=== PATIENT | female | born 1990 | race Caucasian/White ===

== ENCOUNTER 2016-11-16 10:43 | Emergency (ER) | payer OTHER ==
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
--- NOTE | 2016-11-16 11:08 | CPEKG ---
Heart Rate: 61 RR Interval: 984 P-R Interval: 152 QRSD Interval: 98 QT Interval: 464 QTC Interval: 468 P Erie: 59 QRS Erie: 53 T Wave Erie: 58 EKG Severity - NORMAL ECG - EKG Impression: SINUS RHYTHM Electronically Signed By: Home Hardwick 16-Nov-2016 21:23:17
[2016-11-16 11:29] LABS: % IMMATURE GRANULYOCYTES 0.6 % (0.0-1.1); ABSOLUTE IMMATURE GRANULOCYTES 0.03 10^3/uL (0.00-0.10); ADD DIFF? NO; ADD MORPH? NO; ADD SCAN? NO; ATYPICAL LYMPHOCYTE FLAG 10 (0-99); FRAGMENT RBC FLAG 0 (0-99); HEMATOCRIT 41.1 % (38.0-47.0); HEMOGLOBIN 13.7 g/dL (12.6-16.3); LEFT SHIFT FLG 0 (0-99); LIPEMIA HEMOLYSIS FLAG 80 (0-99); MEAN CELL HEMOGLOBIN 31.8 pg (27.9-34.1); MEAN CELL HEMOGLOBIN CONCENTR. 33.3 g/dL (32.4-36.7); MEAN CELL VOLUME 95.4 fL (81.5-99.8); MEAN PLATELET VOLUME 9.2 fL (8.7-11.7); PLATELET CLUMPS FLAG 0 (0-99); PLATELET COUNT 177 10^3/uL (150-400); RED BLOOD CELL COUNT 4.31 10^6/uL (4.18-5.33); RED CELL DISTRIBUTION WIDTH 15.3 % (11.5-15.2)
[2016-11-16 11:56] LABS: ANION GAP 14 mEq/L (8-16); CALCIUM 9.3 mg/dL (8.5-10.4); CARBON DIOXIDE 27 mEq/l (22-31); CHLORIDE 107 mEq/L (97-110); CREATININE 0.8 mg/dL (0.6-1.0); GLOMERULAR FILTRATION RATE > 60; GLUCOSE 90 mg/dL (70-100); POTASSIUM 4.4 mEq/L (3.5-5.2); SODIUM 148 mEq/L (134-144)
[2016-11-16 12:11] LABS: ETHANOL SERUM 350 mg/dL (0-10)
[2016-11-16 13:27] VITALS: BP 109/68; PULSE 80; RESP 16; TEMP 98.2; O2SAT 95
== END 2016-11-16 13:15 | disposition home or self-care (01) ==
DX: F10.120 Alcohol abuse with intoxication, uncomplicated (principal); Z91.14 Patient's other noncompliance with medication regimen; V49.49XA Driver injured in collision with other motor vehicles in traffic accident, initial encounter; Y92.410 Unspecified street and highway as the place of occurrence of the external cause; Y93.89 Activity, other specified
CPT/HCPCS: G0480